=== PATIENT | male | born 1950 | race Caucasian/White ===

== ENCOUNTER → 2017-12-24 | Outpatient (CLI) | payer MEDICARE ==
[~2017-12-24] MED LIST: AMIODARONE HCL200 MG PO; ASPIRIN81 MG PO; FERROUS SULFAT325 M1 PO; FUROSEMIDE20 MG PO; FUROSEMIDE40 MG PO; HYDROCODON-ACE1 EA11 PO; KLOR-CON M1010 MEQ PO; LEVOTHYROXINE75 MCG PO; LISINOPRIL5 MG PO; METOPROLOL TART25 MG PO; METROGEL60 GM EXT; MINOCYCLINE HCL50 MG PO; POTASSIUM CHLO20 ME1 PO; PRAVASTATIN SOD20 MG PO
== END ==
LOC: NM 07:48
DX: I25.810 Atherosclerosis of coronary artery bypass graft(s) without angina pectoris (principal)
CPT/HCPCS: 78452; 93017; A9502

== ENCOUNTER 2025-05-25 08:00 | Day surgery (SDC) | payer MEDICARE ==
[2025-05-20 10:54] LABS: BASOPHILS % 0.3 % (0.0-1.0); EOSINOPHILS % 0.8 % (0.0-6.0); LYMPHOCYTES % 21.3 % (18.0-39.1); MONOCYTES % 7.7 % (4.4-11.3); NEUTROPHILS % 69.5 % (38.7-80.0); RED CELL DISTRIBUTION WIDTH 12.6 % (11.7-14.4)
[2025-05-20 11:22] LABS: EST GLOMERULAR FILTRATION RATE 69.0 ML/MIN (>=60)
[2025-05-25] VITALS (8 sets, daily range): BP systolic 136–156; BP diastolic 72–79; PULSE 50–69; RESP 10–15; TEMP 97–97.8; O2SAT 99–100
[~2025-05-25] VITALS: Ht 165.1 cm; Wt 70.8 kg
[~2025-05-25 08:00] MED LIST changes: +AMLODIPINE BESYL5 MG PO; +ATORVASTATIN CA20 MG PO; +FLOMAX0.4 MG PO
[2025-05-25] MEDS ORDERED: VERAPAMIL HCL 2.5 MG/ML 2 ML VIAL ONE (11:03)
[2025-05-25] MEDS ORDERED: LIDOCAINE HCL 2% LOCAL 20 ML VIAL ONE (11:03)
[2025-05-25] MEDS ORDERED: HEPARIN SOD (PORCINE) 1000 UNIT/ML 30ML ONE (11:03)
[2025-05-25] MEDS ORDERED: HEPARIN SOD/SOD CHLORIDE 2,000 ML ONE (11:04)
[2025-05-25] MEDS ORDERED: IOPAMIDOL 370 MG/ML 100 ML INFUS..BTL INJ ONE (11:04)
[2025-05-25] MEDS ORDERED: SODIUM CHLORIDE 0.9% 1000ML 1,000 ML ONE (11:04)
[2025-05-25] MEDS ORDERED: NITROGLYCERIN/D5W 200 MCG/ML 250 ML ONE (11:04)
[2025-05-25] MEDS ORDERED: FENTANYL CITRATE/PF 100MCG/2 ML INJ ONE (11:12)
[2025-05-25] MEDS ORDERED: MIDAZOLAM HCL 2 MG/2 ML VIAL ONE (11:12)
[2025-05-25] MEDS: DIPHENHYDRAMINE HCL 25 MG CAP ONE (12:05)
[2025-05-25] MEDS: ALPRAZOLAM 0.5 MG TAB ONE (12:05)
== END 2025-05-25 13:45 | disposition home or self-care (01) ==
LOC: CATH LAB 08:00
PROVIDERS: ATTEND Internal Medicine Interventional Cardiology
DX: I25.708 Atherosclerosis of coronary artery bypass graft(s), unspecified, with other forms of angina pectoris (principal); Z95.1 Presence of aortocoronary bypass graft; I10 Essential (primary) hypertension; E78.2 Mixed hyperlipidemia; I35.0 Nonrheumatic aortic (valve) stenosis; E07.9 Disorder of thyroid, unspecified; Z01.812 Encounter for preprocedural laboratory examination; Z79.82 Long term (current) use of aspirin; Z79.899 Other long term (current) drug therapy; Z82.49 Family history of ischemic heart disease and other diseases of the circulatory system; Z82.3 Family history of stroke
CPT/HCPCS: 36415; 75605; 76937; 80053; 85025; 93455; C1760; C1769; C1887; J1644; J2003; J2250; J3010; J7030; Q9967; 99152